=== PATIENT | male | born 1945 | race Caucasian/White ===

== ENCOUNTER → 2016-04-11 | Outpatient (CLI) | payer MEDICARE ==
[~2016-04-11] MED LIST: TUBERCULIN PPD (SKIN TEST) 5 UNIT/0.1 ML (MDV) VIAL INTRADERMA ONE
[2016-04-11 14:56] VITALS: BP 165/84; PULSE 59; RESP 16; TEMP 98.3
== END | disposition home or self-care (01) ==
LOC: PROCWHC3 14:37
DX: K50.90 Crohn's disease, unspecified, without complications (principal)
CPT/HCPCS: 86580

== ENCOUNTER → 2016-07-12 | Outpatient (CLI) | payer MEDICARE ==
[~2016-07-12] MED LIST changes: +ACETAMINOPHEN TAB 500 MG TAB PO ONE; +LORATADINE 10 MG TAB PO ONE; +SODIUM CHLORIDE 0.9% 250 ML in EMPTY BAG 1 BAG IV PRN; +SODIUM CHLORIDE 0.9% 500 ML in EMPTY BAG 1 BAG IV PRN; -TUBERCULIN PPD (SKIN TEST) 5 UNIT/0.1 ML (MDV) VIAL INTRADERMA ONE
[2016-07-12 08:16] VITALS: RESP 18; TEMP 98.2
[2016-07-12 09:29] VITALS: BP 141/67; PULSE 53
== END | disposition home or self-care (01) ==
LOC: PROCWHC3 07:59
PROVIDERS: ATTEND Physician Assistant
DX: K50.00 Crohn's disease of small intestine without complications (principal)
CPT/HCPCS: 96413; 96415; J1745

== ENCOUNTER → 2016-09-06 | Outpatient (CLI) | payer MEDICARE ==
[2016-09-06 08:46] VITALS: RESP 16; TEMP 98.2
[2016-09-06 10:27] VITALS: BP 142/70; PULSE 50
== END ==
LOC: PROCWHC3 08:36
PROVIDERS: ATTEND Physician Assistant
DX: K50.00 Crohn's disease of small intestine without complications (principal)
CPT/HCPCS: 96413; 96415; J1745

== ENCOUNTER → 2016-09-20 | Day surgery (SDC) | payer MEDICARE ==
[2016-09-18 11:54] VITALS: BMI 34.9
[~2016-09-20] MED LIST changes: -ACETAMINOPHEN TAB 500 MG TAB PO ONE; +LACTATED RINGERS 1,000 ML IV SCH; -LORATADINE 10 MG TAB PO ONE; +MIDAZOLAM 2 MG/2 ML VIAL ONE; +PROPOFOL 10 MG/ML 20 ML VIAL IV ONE; +SODIUM CHLORIDE 0.9% 1,000 ML IV SCH; -SODIUM CHLORIDE 0.9% 250 ML in EMPTY BAG 1 BAG IV PRN; -SODIUM CHLORIDE 0.9% 500 ML in EMPTY BAG 1 BAG IV PRN; +fentaNYL (PF) 50 MCG/ML 2 ML AMP ONE
[2016-09-20 07:18] VITALS: TEMP 98.2
[2016-09-20 07:50] VITALS: RESP 16
--- NOTE | 2016-09-20 07:55 | ECHOT ---
INDICATION: Chronic atrial fibrillation. PROCEDURE: LEIGHANN PROCEDURE NOTE: After obtaining informed consent, transesophageal echocardiogram was performed in the left lateral position using an Omniplane probe. Local and IV sedation were obtained by the floor scrubber. The patient tolerated the procedure well without any obvious immediate complications. FINDINGS: 1. There is no intracardiac thrombus within the left atrial appendage, left atrium, right atrium, right ventricle or left ventricle. 2. Left ventricle appears mildly dilated, shows atypical septal motion with mild LV dysfunction with an ejection fraction of ( ). There is hypokinesis involving inferior wall and inferior septum with mild LV dysfunction with an ejection fraction of 45%. 3. Right atrium and right ventricle appear enlarged. Mitral valve is anatomically normal. There is mild central mitral regurgitation noted. 4. Aortic valve is a three leaflet valve. There is trace aortic regurgitation noted. There is mild tricuspid regurgitation noted. 5. Intraatrial septum: There is no evidence of left to right shunt by color flow Doppler or right to left shunt by ( ) saline contrast study. Aorta shows mild atherosclerotic changes. CONCLUSION: No intracardiac thrombus. Mild LV systolic dysfunction enlarged right side with RV systolic dysfunction. Hypokinesis involving inferior wall. PLAN: The patient will proceed with cardioversion. [facility]
--- NOTE | 2016-09-20 07:57 | CE ---
CARDIOVERSION: INDICATION: Chronic atrial fibrillation. The patient underwent electrical cardioversion following a transesophageal echo after obtaining informed consent. We confirmed that there is no intracardiac thrombus and he is adequately anticoagulated with Xarelto 20 mg daily. He is also on Amiodarone for rhythm suppression. The patient was anesthetized by the internet network specialist. He received one 300 joules of DC current following which he converted to sinus rhythm. We will obtain a post conversion ECG. ANGY
--- NOTE | 2016-09-20 07:59 | MISC ---
Dear Gera: I performed a cardioversion on Irwin Prakash for his chronic atrial fibrillation. He converted to sinus rhythm and stays in sinus rhythm. We will continue the Xarelto and the amiodarone that he is currently on. Thank you for giving me the privilege of participating in this pleasant gentleman. ANGY
[2016-09-20 09:31] VITALS: BP 121/68; PULSE 66
== END ==
LOC: CATHCVL 06:32
PROVIDERS: ATTEND Internal Medicine Cardiovascular Disease
DX: I48.0 Paroxysmal atrial fibrillation (principal); I48.2 Chronic atrial fibrillation; K50.90 Crohn's disease, unspecified, without complications; E78.5 Hyperlipidemia, unspecified; F40.240 Claustrophobia; I10 Essential (primary) hypertension; Z79.01 Long term (current) use of anticoagulants; Z79.899 Other long term (current) drug therapy; Z88.8 Allergy status to other drugs, medicaments and biological substances; Z95.1 Presence of aortocoronary bypass graft
CPT/HCPCS: 93312; 93320; 93005; 93325; 92960; J2250; J3010; J2704

== ENCOUNTER → 2016-11-01 | Outpatient (CLI) | payer MEDICARE ==
[~2016-11-01] MED LIST changes: +ACETAMINOPHEN TAB 500 MG TAB PO ONE; +INFLIXIMAB-DYYB 500 MG in SODIUM CHLORIDE 0.9% 250 ML IV ONE; -LACTATED RINGERS 1,000 ML IV SCH; +LORATADINE 10 MG TAB PO ONE; -MIDAZOLAM 2 MG/2 ML VIAL ONE; -PROPOFOL 10 MG/ML 20 ML VIAL IV ONE; -SODIUM CHLORIDE 0.9% 1,000 ML IV SCH; +SODIUM CHLORIDE 0.9% 500 ML in EMPTY BAG 1 BAG IV PRN; -fentaNYL (PF) 50 MCG/ML 2 ML AMP ONE
[2016-11-01 08:19] VITALS: TEMP 98.1
[2016-11-01 08:50] LABS: Basophils # (A) 0.1 k/uL (0-0.2); Basophils % (A) 1 %; CH 23.8; CHCM 29.2; Eosinophils # (A) 0.1 k/uL (0-0.7); Eosinophils % (A) 3 %; HCT 29.1 % (39.0-53.0); HGB 8.7 gm/dL (13.0-17.5); Hypochromasia Marked; Luc # (Auto) 0.16; Luc % (Auto) 3; Lymphocytes % (A) 18 %; MCH 24.2 pg (25.0-35.0); MCHC 29.7 g/dL (31.0-37.0); MCV 81.5 fL (80.0-100.0); Mean Platelet Volume 6.6; Monocytes # (A) 0.6 k/uL (0-1.0); Monocytes % (A) 10 %; Neutrophils # (A) 3.8 k/uL (1.3-7.7); Neutrophils % (A) 67 %; Poikilocytosis Slight; RBC 3.58 m/uL (4.30-5.90); RDW 14.4 % (11.5-15.5); WBC 5.7 k/uL (3.8-10.6); WBC (Perox) 5.85
[2016-11-01 09:05] VITALS: RESP 18
[2016-11-01 09:35] VITALS: BP 123/57; PULSE 52
== END ==
LOC: PROCWHC3 07:46
PROVIDERS: ATTEND Physician Assistant
DX: K50.00 Crohn's disease of small intestine without complications (principal)
CPT/HCPCS: 85025; 96413; 96415; 36415; Q5102

== ENCOUNTER → 2016-12-27 | Outpatient (CLI) | payer MEDICARE ==
[2016-12-27 08:09] VITALS: TEMP 98.3
[2016-12-27 09:01] VITALS: PULSE 51; RESP 16
[2016-12-27 09:46] VITALS: BP 140/70
== END ==
LOC: PROCWHC3 07:49
PROVIDERS: ATTEND Physician Assistant
DX: K50.00 Crohn's disease of small intestine without complications (principal)
CPT/HCPCS: 96413; 96415; Q5102

== ENCOUNTER → 2017-02-21 | Outpatient (CLI) | payer MEDICARE ==
[2017-02-21 08:10] VITALS: TEMP 98.2
[2017-02-21 09:13] VITALS: RESP 18
[2017-02-21 10:04] VITALS: BP 152/73; PULSE 50
== END | disposition home or self-care (01) ==
LOC: PROCWHC3 07:48
PROVIDERS: ATTEND Physician Assistant
DX: Z51.11 Encounter for antineoplastic chemotherapy (principal); K50.00 Crohn's disease of small intestine without complications
CPT/HCPCS: 96361; 96413; 96415; Q5102

== ENCOUNTER 2021-08-02 06:28 | Day surgery (SDC) | payer MEDICARE ==
[2021-08-01 10:15] VITALS: BMI 31.8
[~2021-08-02 06:28] MED LIST changes: -ACETAMINOPHEN TAB 500 MG TAB PO ONE; -INFLIXIMAB-DYYB 500 MG in SODIUM CHLORIDE 0.9% 250 ML IV ONE; +LACTATED RINGERS 1,000 ML IV SCH; +LIDOCAINE 1% (10MG/ML) FOR IV START INTRADERMA PRN; -LORATADINE 10 MG TAB PO ONE; +MOXIFLOXACIN HCL 0.5% DROPS 3 ML BTL OP PRN; -SODIUM CHLORIDE 0.9% 500 ML in EMPTY BAG 1 BAG IV PRN; +TETRACAINE 0.5% OPHTH (PF) DROPS 4 ML BTL OP PRN; +TIMOLOL 0.5% OPHTH DROPS 5 ML BTL OP PRN
[2021-08-02] MEDS: CYCLOPENTOLATE 1% OPHTH SOLN 2 ML BTL OP PRN ×3 (06:50→07:02)
[2021-08-02] MEDS: PHENYLEPHRINE 2.5% OPHTH DRP 2ML OP PRN ×3 (06:53→07:05)
[2021-08-02] MEDS ORDERED: ONDANSETRON 4 MG/2 ML VIAL ONE (07:26)
[2021-08-02] MEDS ORDERED: MIDAZOLAM 2 MG/2 ML VIAL ONE (07:26)
[2021-08-02] MEDS ORDERED: PROPOFOL 10 MG/ML 20 ML VIAL IV ONE (07:26)
[2021-08-02] MEDS ORDERED: LIDOCAINE 2% INJ 20 MG/ML (2 ML VIAL) ONE (07:26)
[2021-08-02] MEDS ORDERED: fentaNYL (PF) 50 MCG/ML 2 ML AMP ONE (07:26)
[2021-08-02] MEDS ORDERED: DEXAMETHASONE SOD PHOSPHATE 10 MG/ML 1 ML VIAL ONE (07:26)
[2021-08-02] MEDS ORDERED: EPINEPHrine (PF) 0.3 ML in BALANCED SALT IRRIG SOLN COMB2 500 ML IRRIGATION ONE (07:47)
[2021-08-02] MEDS ORDERED: BALANCED SALT IRRIG SOLN COMB2 15 ML IRRIG.SOLN IRRIGATION ONE (07:50)
[2021-08-02] MEDS ORDERED: TRYPAN BLUE 0.06% SYRINGE 0.5 ML SYRINGE INTRAOCULA ONE (07:51)
[2021-08-02] MEDS ORDERED: DUOVISC KIT (GREEN BOX) INTRAOCULA ONE ×2 (07:51→07:58)
[2021-08-02] MEDS ORDERED: LIDOCAINE 1% (PF) 10MG/ML VIAL MISCELLANE ONE ×2 (07:51→07:58)
--- NOTE | 2021-08-02 08:04 | P.OP ---
Date of Procedure: 08/02/21 Preoperative Diagnosis: ns & CS & PSC Postoperative Diagnosis: same Procedure(s) Performed: PIOL, OS Implants: MX60E 22.00 Anesthesia: GETA Surgeon: Barry Ritter Pathology: none sent Condition: stable Disposition: same day Indications for Procedure: blurry vision Operative Findings: no complications
[2021-08-02 08:18] VITALS: RESP 16; TEMP 97
[2021-08-02 08:52] VITALS: BP 144/70; PULSE 71
--- NOTE | 2021-08-02 22:14 | OP ---
OPERATIVE REPORT DATE OF SURGERY: 08/02/2021. PROCEDURE: Phacoemulsification of cataract and intraocular lens implant of the left eye. PREOPERATIVE DIAGNOSIS: Nuclear sclerosis cortical sclerosis, posterior subcapsular cataract. POSTOPERATIVE DIAGNOSIS: Nuclear sclerosis cortical sclerosis, posterior subcapsular cataract. OPERATION: Clear cornea phacoemulsification of cataract of the left/OS eye. SURGEON: Dr. Barry Ritter. ANESTHESIA: General anesthesia. ESTIMATED BLOOD LOSS: Zero. SPECIMEN TAKEN: None. NARRATIVE: After obtaining the appropriate consent, the patient was brought to the Operating Room where the patient was placed under cardiac monitoring and prepped and draped in the usual sterile manner. At the 5 o'clock position a 15 degree super sharp blade was used to create a paracentesis followed by instillation of 1% Xylocaine MPF 50:50 mix with BSS into the anterior chamber. This was followed by Duovisc to stabilize the anterior chamber. At the 3 o'clock position a self-sealing corneal flap incision was created using 2.8 mm zoe keratome. A cystotome was used to initiate a continuous tear capsulorrhexis which was completed with the Utrata forceps. A Binkhorst cannula was used to hydrodissect the lens nucleus followed by hydrodelineation. Phacoemulsification of the lens was performed utilizing phacochop in 23.43 seconds at 19% power. The remaining cortical material was removed using the irrigation aspiration mode followed by additional 1% Xylocaine MPF into the anterior chamber followed by viscoelastic to stabilize the capsular bag. A [employer] MX 60E 22.0 diopter posterior chamber lens was placed into the capsular bag without difficulty. The remaining viscoelastic material was removed from the anterior chamber with the irrigation/aspiration. Balanced salt solution was used to normalize the intraocular pressure. The incision was checked for watertight integrity. The patient then received two drops of 0.5% timolol followed by two drops Vigamox, was lightly patched and shielded in the usual manner. There were no complications from the procedure. The patient tolerated the procedure well and was returned to recovery in good condition. MMODL / IJN: [id number] /
== END 2021-08-02 09:15 | disposition home or self-care (01) ==
LOC: OR 06:28
PROVIDERS: ATTEND Ophthalmology
DX: H57.13 Ocular pain, bilateral (principal); H25.043 Posterior subcapsular polar age-related cataract, bilateral; H40.6 Glaucoma secondary to drugs; K50.119 Crohn's disease of large intestine with unspecified complications; I25.10 Atherosclerotic heart disease of native coronary artery without angina pectoris; I25.2 Old myocardial infarction; E78.5 Hyperlipidemia, unspecified; F43.10 Post-traumatic stress disorder, unspecified; I10 Essential (primary) hypertension; I48.91 Unspecified atrial fibrillation; Z95.5 Presence of coronary angioplasty implant and graft; N28.9 Disorder of kidney and ureter, unspecified; Z88.5 Allergy status to narcotic agent; Z79.82 Long term (current) use of aspirin; Z79.899 Other long term (current) drug therapy; Z95.1 Presence of aortocoronary bypass graft
CPT/HCPCS: 66984; C1780; J2250; J1100; J2405; J0171; J3010; J2001 ×2; J2704

== ENCOUNTER 2021-08-23 06:28 | Day surgery (SDC) | payer MEDICARE ==
[~2021-08-23 06:28] MED LIST changes: -LIDOCAINE 1% (10MG/ML) FOR IV START INTRADERMA PRN
[2021-08-23] MEDS: CYCLOPENTOLATE 1% OPHTH SOLN 2 ML BTL OP PRN ×3 (06:57→07:12)
[2021-08-23] MEDS: PHENYLEPHRINE 2.5% OPHTH DRP 2ML OP PRN ×3 (07:00→07:15)
[2021-08-23 07:04] VITALS: TEMP 98.4
[2021-08-23] MEDS ORDERED: LIDOCAINE 1% (10MG/ML) FOR IV START INTRADERMA ONE (07:14)
[2021-08-23] MEDS ORDERED: MIDAZOLAM 2 MG/2 ML VIAL ONE (07:20)
[2021-08-23] MEDS ORDERED: ONDANSETRON 4 MG/2 ML VIAL ONE (07:20)
[2021-08-23] MEDS ORDERED: PROPOFOL 10 MG/ML 20 ML VIAL IV ONE (07:20)
[2021-08-23] MEDS ORDERED: DEXAMETHASONE SOD PHOS (MDV) 100 MG/10 ML VIAL ONE (07:20)
[2021-08-23] MEDS ORDERED: fentaNYL (PF) 50 MCG/ML 2 ML AMP ONE (07:20)
[2021-08-23] MEDS ORDERED: LIDOCAINE 2% INJ 20 MG/ML (2 ML VIAL) ONE (07:20)
[2021-08-23] MEDS ORDERED: EPINEPHrine (PF) 0.3 ML in BALANCED SALT IRRIG SOLN COMB2 500 ML IRRIGATION ONE (07:53)
[2021-08-23] MEDS ORDERED: LIDOCAINE 1% (PF) 10MG/ML VIAL SQ ONE (07:54)
[2021-08-23] MEDS ORDERED: BALANCED SALT IRRIG SOLN COMB2 15 ML IRRIG.SOLN INTRAOCULA ONE (07:54)
[2021-08-23] MEDS ORDERED: HYALURONATE SODIUM INTRAOCULAR 1 EACH SYRINGE (12MG/ML) INTRAOCULA ONE (07:54)
--- NOTE | 2021-08-23 08:05 | P.OP ---
Date of Procedure: 08/23/21 Preoperative Diagnosis: NS & PSC Postoperative Diagnosis: same Procedure(s) Performed: PIOL, OD Implants: MX60E 22.50 Anesthesia: GETA Surgeon: Barry Ritter Pathology: none sent Condition: stable Disposition: same day Indications for Procedure: blurry vision Operative Findings: no complications
[2021-08-23 08:28] VITALS: RESP 16
[2021-08-23 09:11] VITALS: BP 136/78; PULSE 86
--- NOTE | 2021-08-23 21:51 | OP ---
OPERATIVE REPORT DATE OF SURGERY: / PROCEDURE: Phacoemulsification of cataract and intraocular lens implant of the right eye. PREOPERATIVE DIAGNOSIS: Nuclear sclerosis. POSTOPERATIVE DIAGNOSIS: Nuclear sclerosis. ANESTHESIA: General anesthesia. ESTIMATED BLOOD LOSS: Zero. SPECIMEN TAKEN: None. NARRATIVE: After obtaining the appropriate consent, the patient was brought to the operating room, where the patient was placed under cardiac monitoring and prepped and draped in the usual sterile manner. At the 11 o'clock position a 15 degree super sharp blade was used to create a paracentesis followed by instillation of 1% Xylocaine MPF 50:50 mix with BSS into the anterior chamber. This was followed by Amvisc to stabilize the anterior chamber. At the 9 o'clock position a self-sealing corneal flap incision was created using 2.8 mm zoe keratome. A cystotome was used to initiate a continuous tear capsulorrhexis which was completed with the Utrata forceps. A Binkhorst cannula was used to hydrodissect the lens nucleus followed by hydrodelineation. Phacoemulsification of the lens was performed utilizing phacochop in 17.13 seconds at 21% power. The remaining cortical material was removed using the irrigation aspiration mode followed by additional 1% Xylocaine MPF into the anterior chamber followed by viscoelastic to stabilize the capsular bag. A [employer] MX60E 22.5 diopter posterior chamber intraocular lens posterior chamber lens was placed into the capsular bag without difficulty. The remaining viscoelastic material was removed from the anterior chamber with the irrigation/aspiration. Balanced salt solution was used to normalize the intraocular pressure. The incision was checked for watertight integrity. The patient then received two drops of 0.5% timolol followed by two drops Vigamox, was lightly patched and shielded in the usual manner. There were no complications from the procedure. The patient tolerated the procedure well and was returned to recovery in good condition. MMODL / IJN: [id number] /
== END 2021-08-23 09:20 | disposition home or self-care (01) ==
LOC: OR 06:28
PROVIDERS: ATTEND Ophthalmology
DX: H25.11 Age-related nuclear cataract, right eye (principal); H25.041 Posterior subcapsular polar age-related cataract, right eye; H40.6 Glaucoma secondary to drugs; T38.0X5A Adverse effect of glucocorticoids and synthetic analogues, initial encounter; Z98.42 Cataract extraction status, left eye; Z96.1 Presence of intraocular lens; I48.91 Unspecified atrial fibrillation; K50.119 Crohn's disease of large intestine with unspecified complications; E78.00 Pure hypercholesterolemia, unspecified; I10 Essential (primary) hypertension; E78.5 Hyperlipidemia, unspecified; G47.33 Obstructive sleep apnea (adult) (pediatric); I25.10 Atherosclerotic heart disease of native coronary artery without angina pectoris; Z79.82 Long term (current) use of aspirin; Z79.899 Other long term (current) drug therapy; Z83.511 Family history of glaucoma; Z82.49 Family history of ischemic heart disease and other diseases of the circulatory system; Z80.9 Family history of malignant neoplasm, unspecified; Z90.49 Acquired absence of other specified parts of digestive tract; Z88.5 Allergy status to narcotic agent; Z87.891 Personal history of nicotine dependence
CPT/HCPCS: 66984; V2632; J2250; J2405; J0171; J3010; J1100; J2001 ×2; J2704